=== PATIENT | male | born 1960 | race Caucasian/White ===

== ENCOUNTER 2018-11-25 14:04 | Emergency (ER) | payer MEDICAID, SELFPAY ==
[~2018-11-25] VITALS: Ht 185.4 cm; Wt 75.0 kg
[2018-11-25 15:17] VITALS: BP 107/74
--- NOTE | 2018-11-25 15:18 | NUR ---
PT RESTING ON GURKAM AT THIS TIME, NAD NOTED AT THIS TIME
[2018-11-25] MEDS ORDERED: KETOROLAC 30 MG/1 ML IM ONE (15:30)
[2018-11-25] MEDS ORDERED: PLEASE ENTER ALLERGIES MC SCH (16:30)
== END 2018-11-25 16:21 | disposition left against medical advice (07) ==
LOC: ED 16:15
DX: F11.10 Opioid abuse, uncomplicated (principal); F41.9 Anxiety disorder, unspecified; J44.9 Chronic obstructive pulmonary disease, unspecified
CPT/HCPCS: 99283

== ENCOUNTER 2020-01-23 19:32 | Emergency (ER) | payer MEDICARE ==
[~2020-01-23] VITALS: Ht 185.4 cm; Wt 85.0 kg
[2020-01-23 19:36] VITALS: BP 146/85
--- NOTE | 2020-01-23 19:57 | NUR ---
DUSTY RAZO, PT STATES HE WAS WALKING UP THE STAIRS AND FELL DUE TO HIS CHRONIC LEG PAIN AND FELL BACKWARDS. HIT HIS HEAD, LACERATION ON THE BACK OF HEAD. DENIES LOC. DENIES HEADACHE. C SPINE IMMOBILIZER IN PLACE BUY EMS. PT IN SPUPINE POSITION. PT ATTACHED TO BP AND SPO2 MONITORS. BED RAILS UP X 2 AND CALL LIGHT ON LAP. PT INSTRUCTED NOT TO GET UP WITH OUT FIRST PRESSING THE CALL LIGHT. PT VERBALIZED UNDERSTANDING.
[2020-01-23] MEDS ORDERED: OMNIPAQUE 350 MG/ML, 100ML BOTTLE ONE (20:00)
--- NOTE | 2020-01-23 20:38 | NUR ---
PT AMBUALTORY TO THE BATHROOM WITH A STEADT GAIT
--- NOTE | 2020-01-23 20:48 | NUR ---
PT TO CT WITH NICHOLE
[2020-01-23] MEDS ORDERED: KETOROLAC 30 MG/1 ML ONE (21:14)
[2020-01-23] MEDS ORDERED: KETOROLAC 30 MG/1 ML IVPush ONE (21:30)
--- NOTE | 2020-01-23 21:47 | NUR ---
DERMABOND APPLIED TO CUT ON HEAD. PT AMBULATORY TO DISCHARGE DESK WITH STEADY GAIT.
== END 2020-01-23 21:49 | disposition home or self-care (01) ==
LOC: ED 21:00
DX: S01.01XA Laceration without foreign body of scalp, initial encounter (principal); M54.2 Cervicalgia; S09.90XA Unspecified injury of head, initial encounter; F17.200 Nicotine dependence, unspecified, uncomplicated; W01.198A Fall on same level from slipping, tripping and stumbling with subsequent striking against other object, initial encounter; Y93.89 Activity, other specified; Y92.89 Other specified places as the place of occurrence of the external cause; Y99.8 Other external cause status
CPT/HCPCS: 70450; 72125; 96374; 99285; J1885; Q9967

== ENCOUNTER 2020-01-27 09:33 | Outpatient (CLI) | payer MEDICAID, MEDICARE ==
[2020-01-27] MEDS ORDERED: METF500T17 PO (10:14)
[2020-01-27] MEDS ORDERED: OXYC10TA6 PO (10:14)
[2020-01-27 10:40] LABS: BASOPHILS % (AUTO) 1 % (0-1); EOSINOPHILS % (AUTO) 5 % (1-7); LYMPHOCYTES % (AUTO) 28 % (22-44); MEAN CORPUSCULAR HEMOGLOBIN 29.2 pg (27.5-34.5); MEAN CORPUSCULAR HGB CONC 32.8 g/dL (33.2-36.2); MEAN PLATELET VOLUME 7.6 fL (7.4-10.4); MONOCYTES % (AUTO) 8 % (2-9); NEUTROPHILS % (AUTO) 58 % (42-75); PLATELET COUNT 302 x10^3/uL (130-400); RED BLOOD COUNT 4.95 x10^6/uL (4.38-5.82); RED CELL DISTRIBUTION WIDTH 14.6 % (9.4-14.8)
[2020-01-27 10:41] LABS: MD NO
[2020-01-27 10:42] LABS: MICROSCOPIC NOT IND
[2020-01-27 10:48] LABS: ALANINE AMINOTRANSFERASE 32 U/L (12-78); ALBUMIN 3.7 g/dL (3.4-5.0); ANION GAP 5 mmol/L (5-15); CALCIUM 8.8 mg/dL (8.5-10.1); CHLORIDE 108 mmol/L (98-107); CREATININE 0.89 mg/dL (0.7-1.3); INTERNATIONAL NORMALIZED RATIO 1.03 (0.93-1.1); PROTHROMBIN TIME 10.6 Seconds (9.6-11.5)
[2020-01-27 10:50] LABS: ALKALINE PHOSPHATASE 51 U/L (45-117); BILIRUBIN,TOTAL 0.4 mg/dL (0.2-1.0); TOTAL PROTEIN 7.3 g/dL (6.4-8.2)
[2020-02-03] MEDS ORDERED: GABA600T7 PO (10:35)
[2020-02-03] MEDS ORDERED: flexeril (10:35)
== END 2020-01-29 08:00 | disposition home or self-care (01) ==
LOC: STAR 09:33
PROVIDERS: ATTEND Neurological Surgery
DX: Z01.812 Encounter for preprocedural laboratory examination (principal); Z20.828 Contact with and (suspected) exposure to other viral communicable diseases; M48.062 Spinal stenosis, lumbar region with neurogenic claudication
CPT/HCPCS: 36415; 80053; 81003; 85025; 85610; 85730; 87635; 93005

== ENCOUNTER 2020-09-21 08:48 | Emergency (ER) | payer MEDICARE ==
[~2020-09-21] VITALS: Ht 185.4 cm; Wt 80.0 kg
[~2020-09-21 08:48] MED LIST: GABA600T7 PO; METF500T17 PO; OXYC10TA6 PO; flexeril
--- NOTE | 2020-09-21 09:15 | NUR ---
PT BIB EMS FOR LEFT HIP/LUMBAR PAIN AND NUMBNESS FROM UPPER LEG TO BELOW THE KNEE. PT HAD SURGERY IN JANUARY FOR A SPINAL FUSION. POSITIVE CMS TO LEFT EXT. NOTABLE ATROPHY TO UPPER AND LOWER LEG NOTED. PT ONLY ABLE TO LIFT LEG SLIGHTLY ABOVE THE BED. PIV STARTED BY EMS. EMS ADMINISTERD 50 MCG FENTANYL, 500 MG TYLENOL, AND 600 IBUPROFEN FOR PAIN. PT PAIN AFTER MEDS WENT FROM 10 TO 5.
[2020-09-21 09:25] LABS: BASOPHILS % (AUTO) 1 % (0-1); EOSINOPHILS % (AUTO) 2 % (1-7); LYMPHOCYTES % (AUTO) 35 % (22-44); MEAN CORPUSCULAR HEMOGLOBIN 30.1 pg (27.5-34.5); MEAN CORPUSCULAR HGB CONC 34.2 g/dL (33.2-36.2); MEAN PLATELET VOLUME 7.2 fL (7.4-10.4); MONOCYTES % (AUTO) 7 % (2-9); NEUTROPHILS % (AUTO) 54 % (42-75); PLATELET COUNT 373 x10^3/uL (130-400); RED BLOOD COUNT 4.78 x10^6/uL (4.38-5.82); RED CELL DISTRIBUTION WIDTH 14.5 % (9.4-14.8)
[2020-09-21 09:27] LABS: MD NO
[2020-09-21] MEDS ORDERED: SODIUM CHLORIDE FLUSH 10ML SYR IVF ONE (09:30)
[2020-09-21 09:35] LABS: ALANINE AMINOTRANSFERASE 17 U/L (12-78); ALBUMIN 3.8 g/dL (3.4-5.0); ANION GAP 6 mmol/L (5-15); CALCIUM 8.9 mg/dL (8.5-10.1); CHLORIDE 106 mmol/L (98-107); CREATININE 0.81 mg/dL (0.7-1.3)
[2020-09-21 09:38] LABS: ALKALINE PHOSPHATASE 54 U/L (45-117); BILIRUBIN,TOTAL 0.4 mg/dL (0.2-1.0)
--- NOTE | 2020-09-21 10:01 | NUR ---
GENETICIST: PT TO MRI WITH TECH TRANSPORT
[2020-09-21] MEDS ORDERED: LORazepam 2 MG/ML, 1ML IVPush ONE (10:30)
--- NOTE | 2020-09-21 10:31 | NUR ---
OFF THE FLOOR TO MRI
[2020-09-21] MEDS ORDERED: GADOTERATE 7.5 MMOL/15ML SYR ONE (10:41)
[2020-09-21] MEDS ORDERED: LORazepam 2 MG/ML, 1ML ONE (12:17)
[2020-09-21 12:21] VITALS: BP 143/96
--- NOTE | 2020-09-21 12:58 | NUR ---
PT REC'VD DISCHARGE INSTRUCTIONS AND EDUCATION. PT HAD NO FURTHER QUESTIONS. PT PLACED IN WHEELCHAIR AND TAKEN TO THE DC AREA.
== END 2020-09-21 13:02 | disposition home or self-care (01) ==
LOC: ED 11:40
DX: M54.16 Radiculopathy, lumbar region (principal); I10 Essential (primary) hypertension; E11.9 Type 2 diabetes mellitus without complications; G89.29 Other chronic pain
CPT/HCPCS: 36415; 72158; 80053; 85025; 96374; 99285; A9575; J2060

== ENCOUNTER 2020-09-25 05:45 | Emergency (ER) | payer MEDICARE ==
[~2020-09-25] VITALS: Ht 185.4 cm; Wt 81.8 kg
[2020-09-25] MEDS ORDERED: HYDROmorphone 1 MG/ML, 1ML INJ IM ONE (06:00)
[2020-09-25] MEDS ORDERED: KETOROLAC 30 MG/1 ML IM ONE (06:00)
[2020-09-25] MEDS ORDERED: KETOROLAC 30 MG/1 ML ONE (06:07)
[2020-09-25] MEDS ORDERED: HYDROmorphone 1 MG/ML, 1ML INJ ONE (06:08)
--- NOTE | 2020-09-25 06:23 | NUR ---
pt arrived via ems from home, pt complaining of left lower back pain and left leg pain from a ground level fall, pt did not hit his head, pt states he has HTN, and diabetes and takes lisinopril and metforming.
[2020-09-25 06:47] VITALS: BP 141/89
== END 2020-09-25 06:58 | disposition home or self-care (01) ==
LOC: ED 06:45
DX: M54.5 Low back pain (principal)
CPT/HCPCS: 96372; 99284; J1170; J1885